=== PATIENT | female | born 1965 | race Caucasian/White ===

== ENCOUNTER 2024-04-27 12:10 | Outpatient (CLI) | payer BC | END 2024-04-27 12:11 | disposition home or self-care (01) | LOC: CSHMAMMO 12:10 | PROVIDERS: ATTEND Physician Assistant | DX: Z12.31 Encounter for screening mammogram for malignant neoplasm of breast (principal); Z80.3 Family history of malignant neoplasm of breast | CPT/HCPCS: 77063; 77067 ==

== ENCOUNTER 2024-08-02 14:31 | Outpatient (CLI) | payer BC | END 2024-08-02 14:32 | disposition home or self-care (01) | LOC: CSHCT 14:31 | PROVIDERS: ATTEND Psychiatry & Neurology Epilepsy | DX: M50.30 Other cervical disc degeneration, unspecified cervical region (principal); M47.812 Spondylosis without myelopathy or radiculopathy, cervical region | CPT/HCPCS: 72125 ==